=== PATIENT | female | born 1995 | race Two or more races ===

== ENCOUNTER 2017-11-12 09:22 | Emergency (ER) | payer BC ==
[~2017-11-12] VITALS: Ht 177.8 cm; Wt 68.0 kg
[2017-11-12 09:43] VITALS: BP 115/67
[2017-11-12] MEDS ORDERED: IBUPROFEN 200 MG TABLET ONE (10:20)
[2017-11-12] MEDS ORDERED: IBUPROFEN 400 MG TABLET ONE (10:20)
[2017-11-12] MEDS ORDERED: IBUPROFEN 600 MG TABLET PO ONE ×2 (10:28→10:30)
== END 2017-11-12 10:31 | disposition home or self-care (01) ==
LOC: ER 09:26
DX: R50.9 Fever, unspecified (principal); R05 Cough; H92.02 Otalgia, left ear; J02.9 Acute pharyngitis, unspecified; J45.909 Unspecified asthma, uncomplicated
CPT/HCPCS: 99282; A4606; Z7610